=== PATIENT | male | born 1955 | race Caucasian/White ===

== ENCOUNTER 2018-02-05 05:30 | Inpatient (IN) | END 2018-02-06 14:21 | disposition home health service (06) | DRG 470 ==

== ENCOUNTER → 2018-11-01 | Emergency (ER) | payer OTHER ==
[~2018-11-01] VITALS: Ht 172.7 cm; Wt 94.0 kg
[~2018-11-01] MED LIST: AMLO5TAB4 PO; CIPR500T4 PO; HYDROCODONE/APAP (5/325) TAB ONE; HYDROCODONE/APAP (5/325) TAB PO ONE; SIMV10TA2 PO
[2018-11-01 17:28] VITALS: BP 166/85; PULSE 75; RESP 16; Ht 172.7 cm; Wt 94.0 kg
--- NOTE | 2018-11-02 05:33 | ERD ---
ER Documentation Chief Complaint Chief Complaint pt is bib family with c/o right testicular pain starting last night, worse HPI This is a 63-year-old male presents with sudden onset right testicular pain and swelling since last night. Patient states pain started to become progressively worse at 1 PM today. Patient states pain is "stinging" in sensation. He does report some associated urinary frequency and urgency. Denies any hematuria. Denies any flank or back pain. Denies any abdominal pain. Has any fevers or chills. No history of similar symptoms. No history of BPH. ROS All systems reviewed and are negative except as per history of present illness. Medications Home Meds Active Scripts Ciprofloxacin Hcl* (Ciprofloxacin Hcl*) 500 Mg Tablet, 500 MG PO BID for 7 Days, TAB Prov:MARTHA FERNANDEZ PA-C 11/01/18 Reported Medications Amlodipine Besylate* (Norvasc*) 5 Mg Tablet, 5 MG PO DAILY, TAB 02/05/18 Simvastatin (Simvastatin) 10 Mg Tablet, 10 MG PO QHS, #30 TAB 02/05/18 Allergies Allergies: Coded Allergies: No Known Allergy (Unverified , 02/05/18) PMhx/Soc History of Surgery: Yes (prostate, right knee sx) Anesthesia Reaction: No Hx Neurological Disorder: No Hx Respiratory Disorders: No Hx Cardiac Disorders: Yes (HTN, HIGH CHOLESTEROL ) Hx Miscellaneous Medical Probl: Yes (OBESITY, HTN , OA RT KNEE , RT KNEE PAIN .) Hx Alcohol Use: No Hx Substance Use: No Hx Tobacco Use: No Smoking Status: Never smoker Physical Exam Vitals Vital Signs Date Temp Pulse Resp B/P (MAP) Pulse Ox O2 O2 Flow FiO2 Time Delivery Rate 11/01/18 98.3 75 16 166/85 98 17:28 (112) Physical Exam Const: No acute distress Head: Atraumatic Eyes: Normal Conjunctiva ENT: Normal External Ears, Nose and Mouth. Neck: Full range of motion. No meningismus. Resp: Clear to auscultation bilaterally Cardio: Regular rate and rhythm, no murmurs Abd: Soft, non tender, non distended. Normal bowel sounds Exam: Scrotum: Normal Hernia: None Testes/Epid: Non-tender w/ normal lie Cremaster: Reflex intact Lymph: No inguinal lymphadenopathy Discharge: None Skin: No petechiae or rashes Back: No midline or flank tenderness Ext: No cyanosis, or edema Neur: Awake and alert Psych: Normal Mood and Affect Results 24 hrs Laboratory Tests Test 11/01/18 19:00 Urine Color YELLOW Urine Clarity SLIGHTLY CLOUDY Urine pH 5.0 Urine Specific [place] 1.023 Urine Ketones NEGATIVE mg/dL Urine Nitrite POSITIVE mg/dL Urine Bilirubin NEGATIVE mg/dL Urine Urobilinogen NEGATIVE mg/dL Urine Leukocyte Esterase NEGATIVE Lori/ul Urine Microscopic RBC > 182 /HPF Urine Microscopic WBC 16 /HPF Urine Bacteria FEW /HPF Urine Mucus MODERATE /HPF Urine Hemoglobin 3+ mg/dL Urine Glucose NEGATIVE mg/dL Urine Total Protein NEGATIVE mg/dl Current Medications Medications Dose Sig/Zeeshan Start Time Status Last (Trade) Ordered Route PRN Stop Time Admin Dose Reason Admin 1 tab ONCE ONCE 11/01/18 DC 11/01/18 Acetaminophen PO 20:00 19:59 / 11/01/18 20:01 Hydrocodone Bitart (Charlo (5/325)) 1 tab ONCE ONCE 11/01/18 Cancel Acetaminophen PO 20:00 / 11/01/18 20:01 Hydrocodone Bitart (Charlo (5/325)) Procedures/MDM LABS & DIAGNOSTIC IMAGING: Urine: + Nitrates, hematuria, pyuria Ucx: pending CLINICAL INDICATION: Pain FINDINGS: The right testicle is well visualized and has a normal echotexture. The right testicle measures 3.8 x 2.0 x 1.3 cm. There is normal blood flow on color-flow imaging. Doppler arterial waveforms are normal. The right epididymis is visualized and unremarkable in appearance. There is no evidence of hyperemia on color flow imaging. The left testicle is well visualized and has a normal echotexture.The left testicle measures 3.7 x 8-0.1 x 1.3 cm. There is normal testicular blood flow on color flow imaging. Doppler arterial waveforms are normal. The left epididymis is visualized and is unremarkable in appearance. Blood flow is normal on color- flow imaging. The scrotal wall is unremarkable, without swelling or edema. No other incidental abnormality is identified. There is slight fluid around the right testicle and minimal fluid around the left testicle. IMPRESSION: 1. Unremarkable testicular ultrasound. In particular, there is no evidence of testicular torsion, testicular neoplasm, or epididymitis on either side. ED COURSE: The patient was given Charlo The medication was well tolerated and the patient had market improvement in symptoms. The patient remained stable throughout ED course. MEDICAL DECISION MAKIN-year-old well-appearing male presents with right testicular pain. He has no evidence of a hernia on physical exam. Ultrasound is negative for testicular torsion. UA shows evidence of infection, will treat with outpatient antib iotics. He has no fever here, vital signs are normal. I have low suspicion for pyelonephritis, sepsis, or any other emergent process. Patient will be discharged home with outpatient antibiotics and PCP follow-up in 1 week. Strict return precautions were discussed. PRESCRIPTIONS: Ciprofloxacin SPECIALIST FOLLOW UP RECOMMENDED: None Patient has been advised to follow up with primary care in 1-2 days. Blood Pressure Assessment: Patient's blood pressure was elevated (>120/80) but appears stable without evidence of hypertension emergency or urgency. The patient was counseled about the risks of hypertension and urged to pursue ou tpatient monitoring and therapy within a week with their primary care physician. Departure Diagnosis: Primary Impression: Prostatitis Prostatitis type: acute Qualified Codes: N41.0 - Acute prostatitis Condition: Stable Patient Instructions: Bacterial Prostatitis Additional Instructions: Paciente aconseja volver a Departamento de urgencias inmediatamente para sntomas nuevos o que empeoran . Paciente aconseja posteriores con el PCP en 1-2 nicholas. Si el paciente no tiene ninguna de atencin primaria pueden seguir con [facility] [id number] [place] [address] o LOCATED WITHIN [facility] + [address] [address] MARTHA FERNANDEZ PA-C Nov 02, 2018 05:33
== END | disposition home or self-care (01) ==
LOC: FTE 17:14
DX: N41.0 Acute prostatitis (principal); I10 Essential (primary) hypertension; E66.9 Obesity, unspecified; Z68.31 Body mass index [BMI] 31.0-31.9, adult
CPT/HCPCS: 76870; 81001; 87086